=== PATIENT | male | born 2000 | race Caucasian/White ===

== ENCOUNTER 2023-08-09 10:34 | Emergency (ER) | payer OTHER, SELFPAY ==
--- NOTE | ~2023-08-09 | XR_ITS ---
XR tibia fibula RT 2V DATE: 08/09/2023 11:47 INDICATION: Injury. Pain, difficulty bearing weight TECHNIQUE: AP and lateral views of right lower leg COMPARISON: None FINDINGS: No recent fracture or dislocation. No periosteal reaction or bone destruction. Normal align ment at the knee and ankle joints. IMPRESSION: Negative Reviewed, dictated and finalized at location A. IMPRESSION: Negative
[2023-08-09 10:36] VITALS: BP 140/79; PULSE 73; RESP 16; TEMP 36.7; O2SAT 100
--- NOTE | 2023-08-09 13:01 | ED.LOWEXIN ---
HPI - Extremity Injury (Lower) General Chief Complaint: Extremity Injury, Lower Stated Complaint: right leg injury Time Seen by Provider: 08/09/23 12:03 History of Present Illness HPI Narrative: This is a 23-year-old male with no significant past medical history, who presents to the emergency department complaining of left and right foreleg pain. The patient states approximately 2 weeks ago, he was exercising actively including running and pushing/pulling weights, when he felt a sharp and burning pain rated as 7/10 in the right lateral leg. He states his symptoms overall improved, until he began running again 2 to 3 days ago with recurrent pain. He has no other complaints today. Related Data Allergies Allergy/AdvReac Type Severity Reaction Status Date / Time No Known Allergies Allergy Verified 08/09/23 11:30 Review of Systems Review of Systems: CONSTITUTIONAL: Denies fever, chills, or sweats. CARDIOVASCULAR: Denies chest pain, palpitations, or edema. RESPIRATORY: Denies cough or dyspnea. GASTROINTESTINAL: Denies abdominal pain, nausea, vomiting, or diarrhea. GENITOURINARY: Denies dysuria or hematuria. SKIN: Denies rash or itching. MUSCULOSKELETAL: Right foreleg pain denies back pain, or myalgia. NEUROLOGIC: Denies headache, numbness, dizziness, or weakness. PSYCHIATRIC: Denies anxiety or depression. PMFSH Past Medical History Medical History (Updated 08/09/23 @ 21:35 by Luis Pretty MD) No significant past medical history Surgical History Surgical History (Updated 08/09/23 @ 21:35 by Luis Pretty MD) No significant past surgical history Social History Social History (Updated 08/09/23 @ 21:35 by Luis Pretty MD) Smoking status: Never smoker Alcohol intake: never Substance use: current Substance use type: marijuana Exam Narrative: GENERAL: Well-developed, well-nourished, and in no acute distress. HEAD: Normocephalic, atraumatic. EYES: PERRLA and EOMI. CHEST: Clear to auscultation. No respiratory distress. No wheezes rales or rhonchi HEART: Regular rate and rhythm. No murmur heard. Normal peripheral pulses. EXTREMITIES: Nontender to palpation over the lateral aspect of the right foreleg, just distal to the fibular head. There is no noted overlying skin changes. Normal range of motion. No edema. SKIN: Warm, dry, no rash. NEURO: Alert and oriented x3. Moving all 4 limbs purposefully. PSYCH: Normal mood and affect. Course Course Emergency Course: 13:00 - X-ray not concerning for fracture or dislocation. I suspect the patient's pain is related to muscle strain. I advised RICE therapy and follow-up with a primary care doctor. Discussed return and emergency precautions including signs/symptoms of neurovascular compromise and septic arthritis. The patient voiced understanding and is comfortable with the plan. All questions answered to his satisfaction. Vital Signs Vital signs: Vital Signs Temperature 98.0 F 08/09/23 10:36 Pulse Rate 73 08/09/23 10:36 Respiratory Rate 16 08/09/23 10:36 Blood Pressure 140/79 08/09/23 10:36 Pulse Oximetry 100 08/09/23 10:36 Temperature 98.0 F 08/09/23 10:36 Pulse Rate 73 08/09/23 10:36 Respiratory Rate 16 08/09/23 10:36 Blood Pressure 140/79 08/09/23 10:36 Pulse Oximetry 100 08/09/23 10:36 MDM - Extremity Injury (Lower) MDM Narrative Medical decision making narrative: Plan: Imaging, pain control, reassess Differential Diagnosis Differential diagnosis: Likely other (Fracture, strain, other) Discharge Plan Discharge Clinical Impression: Sprain of right lower leg Qualifiers: Encounter type: initial encounter Qualified Code(s): S83.91XA - Sprain of unspecified site of right knee, initial encounter Patient Disposition: Home, Self-Care Condition: Stable Instructions: Antibiotic Form, Leg Sprain (ED) Additional Instructions: You were seen in the emergency department. Your x-r
== END 2023-08-09 13:27 | disposition home or self-care (01) ==
PROVIDERS: Emergency Provider Preventive Medicine Aerospace Medicine; PCP Family Medicine
DX: S83.91XA Sprain of unspecified site of right knee, initial encounter (principal); X58.XXXA Exposure to other specified factors, initial encounter; Y93.B3 Activity, free weights
CPT/HCPCS: 73590; 99283

== ENCOUNTER 2024-03-03 08:29 | Outpatient (CLI) | payer OTHER, SELFPAY ==
--- NOTE | ~2024-03-03 | XR_ITS ---
PA, oblique, and lateral views of the left thumb CLINICAL HISTORY: Sprain FINDINGS: No fracture or dislocation seen. Joint spaces are preserved. Soft tissues are unremarkable. IMPRESSION: Unremarkable exam. Reviewed, dictated and finalized at location M. IMPRESSION: Unremarkable exam.
== END 2024-03-03 08:30 | disposition home or self-care (01) ==
PROVIDERS: PCP Family Medicine; Visit Provider Plastic Surgery
DX: S63.602A Unspecified sprain of left thumb, initial encounter (principal); X58.XXXA Exposure to other specified factors, initial encounter
CPT/HCPCS: 73140

== ENCOUNTER 2024-03-08 10:01 | Outpatient (CLI) | payer OTHER, SELFPAY ==
--- NOTE | ~2024-03-08 | MR_ITS ---
MRI of the left thumb CLINICAL HISTORY: Ulnar collateral ligament tear TECHNIQUE: Axial T1-weighted and T2 fat-sat images, sagittal T1-weighted and T2 fat-sat images, and c oronal T1-weighted and proton-density fat-sat images were performed. FINDINGS: Bone marrow signals are unremarkable. No fracture or dislocation seen. Joint spaces and beverley e are preserved. No joint effusion. Ulnar collateral ligament is intact at the first MCP joint, without evidence of tear. Radial collater al ligament intact. Collateral ligaments of the interphalangeal joint of the thumb are intact. Visual ized tendons are intact. Visualized musculature unremarkable. No soft tissue mass or fluid collection evident. IMPRESSION: Unremarkable exam. No evidence of ulnar collateral ligament tear. Reviewed, dictated and finalized at location .
== END 2024-03-08 10:02 ==
LOC: MICIMG 10:02
PROVIDERS: PCP Plastic Surgery; Visit Provider Plastic Surgery
DX: S63.592A Other specified sprain of left wrist, initial encounter (principal); X58.XXXA Exposure to other specified factors, initial encounter
CPT/HCPCS: 73218